=== PATIENT | female | born 2000 | race American Indian/Alaskan Native ===

== ENCOUNTER 2020-04-27 20:33 | Emergency (ER) | payer MEDICAID, OTHER ==
--- NOTE | 2020-04-27 21:11 | Event Note ---
ED Screening Note Date of service: 04/27/20 Time: 21:10 ED Screening Note: Is a pleasant G1, P0 20-year-old female presents the emergency department approximately 5 weeks with a chief complaint vaginal bleeding that started today. Patient states this is spotting. She has not yet seen her ACCESS DIRECTOR. She is not an ultrasound at this . She reports some mild cramping the lower abdomen. This initial assessment/diagnostic orders/clinical plan/treatment(s) is/are subject to change based on patients health status, clinical progression and re- assessment by fellow clinical providers in the ED. Further treatment and workup at subsequent clinical providers discretion. Patient/guardian urged not to elope from the ED as their condition may be serious if not clinically assessed and managed. Initial orders include: CBC, CMP, type and screen, urinalysis, transvaginal ultrasound
[2020-04-27 21:44] LABS: Basophils % (Auto) 0.6 % (0.0-1.8); Eosinophils % (Auto) 0.6 % (0.0-4.3); Hematocrit 31.4 % (30.3-42.9); Hemoglobin 11.2 gm/dl (10.1-14.3); Lymphocytes # (Auto) 1.7 K/mm3 (1.2-5.4); Lymphocytes % (Auto) 21.3 % (13.4-35.0); Mean Corpuscular HGB Conc 36 % (30-34); Mean Corpuscular Volume 80 fl (79-97); Monocytes # (Auto) 0.8 K/mm3 (0.0-0.8); Monocytes % (Auto) 9.7 % (0.0-7.3); Platelet Count 275 K/mm3 (140-440); Red Blood Count 3.94 M/mm3 (3.65-5.03); Red Cell Distribution Width 16.3 % (13.2-15.2)
[2020-04-27 22:05] LABS: Blood Urea Nitrogen 6 mg/dL (7-17); Calcium 9.6 mg/dL (8.4-10.2); Hemolysis Index 1
[2020-04-27 22:08] LABS: BUN/Creatinine Ratio 12
[2020-04-27] MEDS ORDERED: ACETAMINOPHEN 325 MG TAB PO ONE (23:26)
--- NOTE | 2020-04-27 23:29 | Ultrasound Report ---
US OB <= 14 weeks fetus INDICATION / CLINICAL INFORMATION: vaginal bleeding, approx 5 wks. COMPARISON: None available. FINDINGS: Uterus measures approximately 10 x 5 x 6 cm. Intrauterine gestational sac is noted with yolk sac and pole. [place]-rump length is 8.0 mm, 6 weeks 5 days. heart rate is 123. No subchorionic hem orrhage is seen. Ovaries are within normal limits. No adnexal lesions. No free fluid. IMPRESSION: 1. Single viable intrauterine with sonographic gestational age of 6 weeks, 5 days by crown- rump length. No abnormalities are identified. Signer Name: Srikanth Marr MD Signed: 04/27/2020 11:24 PM Workstation Name: [id number]
[2020-04-28 00:01] LABS: Bilirubin,Urine NEG (Negative); Blood,Urine NEG (Negative); Color,Urine Straw (Yellow); Mucus,Urine FEW /HPF; Protein,Urine <15 mg/dL mg/dL (Negative); Urobilinogen,Urine < 2.0 mg/dL (<2.0); WBC,Urine < 1.0 /HPF (0.0-6.0)
[2020-04-28 00:04] VITALS: BP 118/83
--- NOTE | 2020-04-28 00:06 | Emergency Department Report ---
ED HPI - General Chief complaint: Vaginal Bleeding Stated complaint: 5WKS /BLEEDING Time Seen by Provider: 04/27/20 23:19 Source: patient Mode of arrival: Ambulatory Limitations: No Limitations - History of Present Illness Initial comments: Patient is a 20-year-old female presents emergency room with lower abdominal cramping that began around 5 PM tonight. She states that she has associated vaginal bleeding. She states that she has changed her pad approximately 3 times. She denies any passing clots or significantly heavy bleeding. She states that her last menstrual cycle was March 18. She states that she has not yet seen her INDUSTRIAL INSULATOR but has an appointment with Dr. Shaw. She states that she typically has nausea in the morning and has one episode of vomiting but resolves. She has no nausea vomiting currently. She is able to tolerate p.o. intake. She denies any fever, diarrhea, dysuria, vaginal discharge or irr itation. No past medical history. No allergies to medications. She states this is her first . - Related Data Allergies Allergy/AdvReac Type Severity Reaction Status Date / Time No Known Allergies Allergy Unverified 08/27/15 17:13 ED Review of Systems ROS: Stated complaint: 5WKS /BLEEDING Other details as noted in HPI Comment: All other systems reviewed and negative ED Past Medical Hx - Past Medical History Hx Asthma: Yes Additional medical history: ANXIETY/ ECZEMA - Social History Smoking Status: Never Smoker Substance Use Type: None ED Physical Exam - General Limitations: No Limitations General appearance: alert, in no apparent distress - Head Head exam: Present: atraumatic, normocephalic - Eye Eye exam: Present: normal appearance - ENT ENT exam: Present: mucous membranes moist - Respiratory Respiratory exam: Present: normal lung sounds bilaterally. Absent: respiratory distress, wheezes, rales, rhonchi, stridor, chest wall tenderness, accessory mu scle use, decreased breath sounds, prolonged expiratory - Cardiovascular Cardiovascular Exam: Present: regular rate, normal rhythm, normal heart sounds. Absent: systolic murmur, diastolic murmur, rubs, gallop - GI/Abdominal GI/Abdominal exam: Present: soft, normal bowel sounds. Absent: distended, tenderness, guarding, rebound, rigid - Neurological Exam Neurological exam: Present: alert, oriented X3 - Psychiatric Psychiatric exam: Present: normal affect, normal mood - Skin Skin exam: Present: warm, dry, intact ED Course Vital Signs 04/27/20 21:15 Temperature 98.9 F Pulse Rate 84 Respiratory 16 Rate Blood Pressure 118/83 O2 Sat by Pulse 100 Oximetry ED Medical Decision Making - Lab Data Result diagrams: 04/27/20 21:18 04/27/20 21:18 Lab Results 04/27/20 04/27/20 04/27/20 Range/Units 21:18 21:18 21:18 WBC 8.1 (4.5-11.0) K/mm3 RBC 3.94 (3.65-5.03) M/mm3 Hgb 11.2 (10.1-14.3) gm/dl Hct 31.4 (30.3-42.9) % MCV 80 (79-97) fl MCH 29 (28-32) pg MCHC 36 H (30-34) % RDW 16.3 H (13.2-15.2) % Plt Count 275 (140-440) K/mm3 Lymph % (Auto) 21.3 (13.4-35.0) % [place] % (Auto) 9.7 H (0.0-7.3) % Eos % (Auto) 0.6 (0.0-4.3) % Baso % (Auto) 0.6 (0.0-1.8) % Lymph # (Auto) 1.7 (1.2-5.4) K/mm3 [place] # (Auto) 0.8 (0.0-0.8) K/mm3 Eos # (Auto) 0.0 (0.0-0.4) K/mm3 Baso # (Auto) 0.0 (0.0-0.1) K/mm3 Seg Neutrophils % 67.8 (40.0-70.0) % Seg Neutrophils # 5.5 (1.8-7.7) K/mm3 Sodium 133 L (137-145) mmol/L Potassium 4.1 (3.6-5.0) mmol/L Chloride 100.0 (98-107) mmol/L Carbon Dioxide 23 (22-30) mmol/L Anion Gap 14 mmol/L BUN 6 L (7-17) mg/dL Creatinine 0.5 L (0.6-1.2) mg/dL Estimated GFR > 60 ml/min BUN/Creatinine Ratio 12 % Glucose 79 (65-100) mg/dL Calcium 9.6 (8.4-10.2) mg/dL HCG, Quant 61600 H (0-4) mIU/mL Urine Color (Yellow) Urine Turbidity (Clear) Urine pH (5.0-7.0) Ur Specific [place] (1.003-1.030) Urine Protein (Negative) mg/dL Urine Glucose (UA) (Negative) mg/dL Urine Ketones (Negative) mg/dL Urine Blood (Negative) Urine Nitrite (Negative) Urine Bilirubin (Negative) Urine Urobilinogen (<2.0) mg/dL Ur Leukocyte Esterase (Negative) Urine WBC (Auto) (0.0-6.0) /HPF Urine RBC (Auto) (0.0-6.0) /HPF U Epithel Cells (Auto) (0-13.0) /HPF Urine Mucus /HPF Blood Type 04/27/20 04/27/20 Range/Units 21:18 Unknown WBC (4.5-11.0) K/mm3 RBC (3.65-5.03) M/mm3 Hgb (10.1-14.3) gm/dl Hct (30.3-42.9) % MCV (79-97) fl MCH (28-32) pg MCHC (30-34) % RDW (13.2-15.2) % Plt Count (140-440) K/mm3 Lymph % (Auto) (13.4-35.0) % [place] % (Auto) (0.0-7.3) % Eos % (Auto) (0.0-4.3) % Baso % (Auto) (0.0-1.8) % Lymph # (Auto) (1.2-5.4) K/mm3 [place] # (Auto) (0.0-0.8) K/mm3 Eos # (Auto) (0.0-0.4) K/mm3 Baso # (Auto) (0.0-0.1) K/mm3 Seg Neutrophils % (40.0-70.0) % Seg Neutrophils # (1.8-7.7) K/mm3 Sodium (137-145) mmol/L Potassium (3.6-5.0) mmol/L Chloride (98-107) mmol/L Carbon Dioxide (22-30) mmol/L Anion Gap mmol/L BUN (7-17) mg/dL Creatinine (0.6-1.2) mg/dL Estimated GFR ml/min BUN/Creatinine Ratio % Glucose (65-100) mg/dL Calcium (8.4-10.2) mg/dL HCG, Quant (0-4) mIU/mL Urine Color Straw (Yellow) Urine Turbidity Clear (Clear) Urine pH 7.0 (5.0-7.0) Ur Specific [place] 1.013 (1.003-1.030) Urine Protein <15 mg/dl (Negative) mg/dL Urine Glucose (UA) Neg (Negative) mg/dL Urine Ketones Tr (Negative) mg/dL Urine Blood Neg (Negative) Urine Nitrite Neg (Negative) Urine Bilirubin Neg (Negative) Urine Urobilinogen < 2.0 (<2.0) mg/dL Ur Leukocyte Esterase Neg (Negative) Urine WBC (Auto) < 1.0 (0.0-6.0) /HPF Urine RBC (Auto) 2.0 (0.0-6.0) /HPF U Epithel Cells (Auto) < 1.0 (0-13.0) /HPF Urine Mucus Few /HPF Blood Type B POSITIVE - Radiology Data Radiology results: report reviewed Ordering Physician: MARLENE BOTAENG Date of Service: 04/27/20 Procedure(s): US OB <= 14 weeks fetus Accession Number(s): [id number] cc: MARLENE BOATENG OB <= 14 weeks fetus INDICATION / CLINICAL INFORMATION: vaginal bleeding, approx 5 wks. COMPARISON: None available. FINDINGS: Uterus measures approximately 10 x 5 x 6 cm. Intrauterine gestational sac is noted with yolk sac and pole. [place]-rump length is 8.0 mm, 6 weeks 5 days. heart rate is 123. No subchorionic hemorrhage is seen. Ovaries are within normal limits. No adnexal lesions. No free fluid. IMPRESSION: 1. Single viable intrauterine with sonographic gestational age of 6 weeks, 5 days by crown-rump length. No abnormalities are identified. Signer Name: Srikanth Marr MD Signed: 04/27/2020 11:24 PM Workstation Name: [id number] Transcribed By: NANETTE Dictated By: Srikanth Marr MD Electronically Authenticated By: Srikanth Marr MD Signed Date/Time: 04/27/202323 DD/ 22 TD/TT: - Medical Decision Making Patient is a 20-year-old female presents emergency room with lower abdominal cramping that began around 5 PM tonight. She states that she has associated vaginal bleeding. She states that she has changed her pad approximately 3 times. She denies any passing clots or significantly heavy bleeding. She states that her last menstrual cycle was March 18. She states that she has not yet seen her INDUSTRIAL INSULATOR but has an appointment with Dr. Shaw. She states that she typically has nausea in the morning and has one episode of vomiting but resolves. She has no nausea vomiting currently. She is able to tolerate p.o. intake. She denies any fever, diarrhea, dysuria, vaginal discharge or irritation. No past medical history. No allergies to medications. She states this is her first . Vitals are normal. No abdominal tenderness on exam. Labs are stable. Patient is Rh[place] [id number]. UA is within normal limits. OB ultrasound:1. Single viable intrauterine with sonographic gestational age of 6 weeks, 5 days by crown-rump length. No abnormalities are identified. Discussed all results with patient and answered questions. Patient given her ultrasound report. Patient will need close INDUSTRIAL INSULATOR follow-up, discussed threatened miscarriage with patient, discussed the importance of repeat hCG quant in 2 days, discussed strict return precautions. Advised patient May take Tylenol as needed for discomfort. Increase your water intake. Please take a vitamin [id number]. Follow-up with your INDUSTRIAL INSULATOR. You need to have a repeat hCG quant in the next 2 days. Return to emergency room for any new or worsening symptoms. - Differential Diagnosis IUP, ectopic, subchorionic hemorrhage, hemorrhagic cyst, UTI, implantation Critical care attestation.: If time is entered above; I have spent that time in minutes in the direct care of this critically ill patient, excluding procedure time. ED Disposition Clinical Impression: Abdominal cramping, Vaginal bleeding Qualifiers: Weeks of gestation: less than 8 weeks Qualified Code(s): Z3A.01 - Less than 8 weeks gestation of Disposition: - TO HOME OR SELFCARE Is pt being admited?: No Does the pt Need Aspirin: No Condition: Stable Instructions: Threatened Miscarriage, [id number] Additional Instructions: May take Tylenol as needed for discomfort. Increase your water intake. Please take a vitamin [id number]. Follow-up with your INDUSTRIAL INSULATOR. You need to have a repeat hCG quant in the next 2 days. Return to emergency room for any new or worsening symptoms. Referrals: SUSAN SHAW MD [Staff Physician] - 2-3 Days Time of Disposition: 00:17 Print Language: DANISH
== END 2020-04-28 00:28 | disposition home or self-care (01) ==
LOC: ED 20:33
DX: O26.891 Other specified pregnancy related conditions, first trimester (principal); R10.2 Pelvic and perineal pain; O20.8 Other hemorrhage in early pregnancy; O99.511 Diseases of the respiratory system complicating pregnancy, first trimester; J45.909 Unspecified asthma, uncomplicated; O99.341 Other mental disorders complicating pregnancy, first trimester; Z3A.01 Less than 8 weeks gestation of pregnancy
CPT/HCPCS: 36415; 76801; 80048; 81001; 84702; 85025; 86900; 86901

== ENCOUNTER 2020-10-06 14:46 | Inpatient (IN) | payer OTHER, MEDICAID ==
[2020-10-06 16:37] LABS: Bilirubin,Urine NEG (Negative); Blood,Urine NEG (Negative); Color,Urine Straw (Yellow); Protein,Urine <15 mg/dL mg/dL (Negative); Urobilinogen,Urine < 2.0 mg/dL (<2.0)
[2020-10-06] MEDS ORDERED: LACTATED RINGERS 1,000 ML IV ONE (16:49)
[2020-10-06] MEDS ORDERED: TERBUTALINE 1 MG/1 ML INJ SUB-Q ONE (16:49)
[2020-10-06] MEDS ORDERED: ACETAMINOPHEN 325 MG TAB PO PRN (17:37)
[2020-10-06] MEDS ORDERED: DOCUSATE SODIUM 100 MG CAP PO PRN (17:37)
[2020-10-06] MEDS ORDERED: LACTATED RINGERS 1,000 ML IV SCH (17:45)
[2020-10-06] MEDS ORDERED: ACETAMINOPHEN 500 MG TAB PO PRN (17:47)
--- NOTE | 2020-10-06 17:49 | History and Physical Report ---
History of Present Illness Date of examination: 10/06/20 Chief complaint: Persistent contractions History of present illness: 20 yof who presented to the office for AURA c/o decrease FM. FHT's cat 1 however UC noted [id number]. She was sent to triage for evaluation where she has a +fFN however cervix closed. She had persisted UC's after IVF bolus and terbutaline. She's admitted now for steroid therapy and observation. Past History Past Medical History: no pertinent history Past Surgical History: no surgical history - Obstetrical History Expected Date of Delivery: 12/19/20 Actual Gestation: 29 Week(s) 3 Day(s) : 1 Medications and Allergies Allergies Allergy/AdvReac Type Severity Reaction Status Date / Time No Known Allergies Allergy Verified 10/06/20 15:12 Active Meds: Active Medications Acetaminophen (Acetaminophen 325 Mg Tab) 1,000 mg PO Q6H PRN PRN Reason: Pain MILD(1-3)/Fever >100.5/SORTO Betamethasone Acet/Betameth SodPhos (Betamet Acet/Betamet Na Ph 6 Mg/Ml Inj 5 Ml Mdv) 12 mg IM Q24HR DAVI Stop: 10/07/20 10:01 Docusate Sodium (Docusate Sodium 100 Mg Cap) 100 mg PO Q12H PRN PRN Reason: Constipation Lactated Ringer's (Lactated Ringers) 1,000 mls @ 125 mls/hr IV DIRECT DAVI Lactated Ringer's (Lactated Ringers) 1,000 mls @ 999 mls/hr IV BOLUS ONE Stop: 10/06/20 17:49 Lactated Ringer's (Lactated Ringers) 1,000 mls @ 125 mls/hr IV DIRECT DAVI Multivitamins/Iron/Calcium ( [id number]-[id number] Fumarate-Folic Acid Vit Tab) 1 each PO QDAY DAVI Review of Systems Genitourinary: contractions - Vital Signs Vital signs: Vital Signs Pulse Pulse Ox 88 98 10/06/20 15:09 10/06/20 15:09 Temp Pulse Resp BP Pulse Ox 98.5 F 95 H 20 116/74 100 10/06/20 15:15 10/06/20 17:39 10/06/20 15:15 10/06/20 15:36 10/06/20 17:39 - Physical Exam Abdomen: Positive: normal appearance, soft. Negative: tenderness Genitourinary (Female): Positive: normal external genitalia, normal perenium Uterus: Positive: enlarged. Negative: tender Anus/Rectum: Positive: normal perianal skin Extremities: Positive: normal - Obstetrical FHR: category 1 Uterine Contraction Monitor Mode: External Cervical Dilatation: 0 Cervical Effacement Percentage: 20 station: -3 Uterine Contraction Frequency (min): 3-4 Uterine Contraction Pattern: Irregular Results All other labs normal. Assessment and Plan - Patient Problems (1) 29 weeks gestation of Current Visit: Yes Status: Acute (2) contractions Current Visit: Yes Status: Acute Plan to address problem: Admit for IVF, steroids and observation Hold MgSO4 for now since no cervical dilation. Diagnosis and plan of care discussed. She voiced understanding and agrees with course of care (3) Carrier of group B Streptococcus Current Visit: Yes Status: Acute
[2020-10-06] MEDS: BETAMET ACET/BETAMET NA PH 6 MG/ML INJ 5 ML MDV IM SCH (21:43)
[2020-10-07] MEDS: LACTATED RINGERS 1,000 ML IV SCH (07:08)
--- NOTE | 2020-10-07 07:55 | Progress Note ---
Assessment and Plan pt resting w/o complaints, reports last feeling ctx around 0300. Second dose of steroids due tonight @ 2143. will continue to monitor for labor and reevaluate in AM. - Patient Problems (1) 29 weeks gestation of Current Visit: Yes Status: Acute (2) contractions Current Visit: Yes Status: Acute Subjective - Subjective Date of service: 10/07/20 Principal diagnosis: IUP @ 29+4; + FFN, ctx Patient reports: movement normal, no new complaints, no loss of fluid, no vaginal bleeding, no contractions Objective - Vital Signs Vital Signs: Vital Signs - 12hr 10/06/20 10/07/20 23:38 05:20 Temperature 98.5 F 98.1 F Pulse Rate 97 H 86 Blood Pressure 113/57 110/64 - Exam Breasts: normal Cardiovascular: Regular rate Lungs: Normal air movement Abdomen: Present: normal appearance, soft Vulva: both: normal Uterus: Present: normal, fundal height above umbilicus FHR: auscultation normal, category 1 Uterine Contraction Monitor Mode: External Uterine Contraction Pattern: Absent Uterine Tone Measurement Phase: Resting Extremities: normal Deep Tendon Reflex Grade: Normal +2 - Labs Labs: Laboratory Results - last 24 hr 10/06/20 10/06/20 10/06/20 16:00 19:00 Unknown Urine Color Straw Urine Turbidity Clear Urine pH 7.0 Ur Specific [place] 1.008 Urine Protein <15 mg/dl Urine Glucose (UA) Neg Urine Ketones Neg Urine Blood Neg Urine Nitrite Neg Ur Reducing Substances Not Reportable Urine Bilirubin Neg Urine Ictotest Not Reportable Urine Urobilinogen < 2.0 Ur Leukocyte Esterase Neg Urine WBC (Auto) 1.0 Urine RBC (Auto) 1.0 U Epithel Cells (Auto) 1.0 Fibronectin Positive Blood Type B POSITIVE Antibody Screen Negative
[2020-10-07] MEDS: PRENATAL VIT27-FE FUMARATE-FOLIC ACID VIT TAB PO SCH (10:38)
[2020-10-07] MEDS: BETAMET ACET/BETAMET NA PH 6 MG/ML INJ 5 ML MDV IM SCH (21:48)
[2020-10-08] MEDS: LACTATED RINGERS 1,000 ML IV SCH (06:08)
--- NOTE | 2020-10-08 08:13 | Progress Note ---
Assessment and Plan Continue monitoring for SSx of PTL. Will review case with Dr. Levin. - Patient Problems (1) 29 weeks gestation of Current Visit: Yes Status: Acute (2) contractions Current Visit: Yes Status: Acute Subjective - Subjective Date of service: 10/08/20 Principal diagnosis: IUP @ 29+5; + FFN, ctx Interval history: Pt admitted for contractions and +FFN; States, "I feel so much better". Reports +FM and denies all complaints. Patient reports: movement normal, no new complaints, no loss of fluid, no vaginal bleeding, no contractions Objective - Vital Signs Vital Signs: Vital Signs - 12hr 10/07/20 10/08/20 10/08/20 23:52 04:36 06:05 Temperature 98.1 F 98.3 F Pulse Rate 96 H 80 Respiratory 20 Rate Blood Pressure 112/60 94/54 10/08/20 06:08 Temperature Pulse Rate 92 H Respiratory Rate Blood Pressure 105/58 - Exam Cardiovascular: Regular rate Lungs: Normal air movement Abdomen: Present: normal appearance, soft Vulva: both: normal Uterus: Present: normal FHR: auscultation normal, category 1 Uterine Contraction Monitor Mode: External Uterine Contraction Pattern: Absent Uterine Tone Measurement Phase: Resting Extremities: normal - Labs Labs: Laboratory Results - last 24 hr 10/07/20 Unknown Coronavirus (PCR) Negative
[2020-10-08] MEDS: PRENATAL VIT27-FE FUMARATE-FOLIC ACID VIT TAB PO SCH (10:05)
--- NOTE | 2020-10-08 12:12 | Discharge Summary ---
Providers - Providers Date of Admission: 10/06/20 17:37 Date of discharge: 10/08/20 Attending physician: EUGENE HALL Primary care physician: SUSAN SHAW Hospitalization Reason for admission: contractions, +FFN Condition: Good Disposition: DC-01 TO HOME OR SELFCARE Final Discharge Diagnosis (Prints w/discharge instructions): contractions Core Measure Documentation - Palliative Care Palliative Care/ Comfort Measures: Not Applicable - Core Measures Any of the following diagnoses?: none Exam - Physical Exam Narrative exam: Pt in good spirits, denies all complaints and reports desire for discharge home; SVE closed/thick; Pt ok to D/C home per Dr. Sahw consultation - Constitutional Vitals: Temp Pulse Resp BP Pulse Ox 98.6 F 92 H 20 105/58 100 10/08/20 07:15 10/08/20 06:08 10/07/20 23:52 10/08/20 06:08 10/06/20 17:39 General appearance: Present: no acute distress - EENT ENT: hearing intact - Respiratory Respiratory effort: normal - Extremities Extremities: No edema, normal temperature, normal color - Abdominal General gastrointestinal: Present: soft, non-tender Female genitourinary: Present: normal - Integumentary Integumentary: Present: warm, dry - Musculoskeletal Musculoskeletal: strength equal bilaterally - Psychiatric Psychiatric: appropriate mood/affect, intact judgment & insight, memory intact, cooperative Plan Activity: advance as tolerated Diet: regular Follow up with: SUSAN SHAW MD [Primary Care Provider] - 7 Days
[2020-10-08 14:54] VITALS: BP 117/60
== END 2020-10-08 16:10 | disposition home or self-care (01) | DRG 833 ==
LOC: TRG 14:46 → APU 14:48 → LD 17:37 → TRG 19:00
PROVIDERS: ADMIT Obstetrics & Gynecology; ATTEND Obstetrics & Gynecology
DX: O60.03 Preterm labor without delivery, third trimester (principal); Z3A.29 29 weeks gestation of pregnancy; O99.820 Streptococcus B carrier state complicating pregnancy; Z20.822 Contact with and (suspected) exposure to COVID-19
CPT/HCPCS: 36415; 81001; 82731; 86850; 86900; 86901; G0378; J0702; J3105; J7120; U0003

== ENCOUNTER 2020-12-03 01:35 | Outpatient (CLI) | payer OTHER, MEDICAID ==
[2020-12-03 03:00] VITALS: BP 110/59
== END 2020-12-03 03:13 | disposition home or self-care (01) ==
LOC: TRG 01:35 → APU 01:45 → TRG 03:13
PROVIDERS: ATTEND Obstetrics & Gynecology
DX: Z34.93 Encounter for supervision of normal pregnancy, unspecified, third trimester (principal); Z3A.37 37 weeks gestation of pregnancy
CPT/HCPCS: 59025

== ENCOUNTER 2020-12-08 06:06 | Inpatient (IN) | payer OTHER, MEDICAID ==
[2020-12-08] MEDS ORDERED: CARBOPROST TROMETHAMINE 250 MCG/1 ML INJ IM PRN (06:35)
[2020-12-08] MEDS ORDERED: LOPERAMIDE 2 MG CAP PO PRN (06:35)
[2020-12-08] MEDS ORDERED: METHYLERGONOVINE MALEATE 0.2 MG/ML VIAL IM PRN (06:35)
[2020-12-08] MEDS ORDERED: fentaNYL 100 MCG/2 ML INJ IV PRN (06:35)
[2020-12-08] MEDS ORDERED: TERBUTALINE 1 MG/1 ML INJ SUB-Q PRN (06:35)
[2020-12-08] MEDS ORDERED: ONDANSETRON 4 MG/2 ML INJ IV PRN ×3 (06:35→18:13)
[2020-12-08] MEDS ORDERED: miSOPROStol 200 MCG TAB PR PRN (06:35)
[2020-12-08] MEDS ORDERED: OXYTOCIN 10 UNIT/1 ML INJ IM PRN (06:35)
[2020-12-08] MEDS ORDERED: ePHEDrine SULFATE 50 MG/1 ML INJ IV PRN ×2 (06:35→10:00)
[2020-12-08] MEDS ORDERED: AMPICILLIN/NS 2 GM/100 ML 2 GM/100 ML BAG IV ONE (06:35)
[2020-12-08] MEDS ORDERED: LIDOCAINE (2%) 20 MG/1 ML VIAL 20 ML MDV INFILTRATI ONE (06:35)
[2020-12-08] MEDS ORDERED: MINERAL OIL 30 ML ORAL LIQD PO PRN (06:35)
--- NOTE | 2020-12-08 06:48 | History and Physical Report ---
History of Present Illness Date of examination: 12/08/20 Date of admission: 12/08/2020 Chief complaint: contractions since 7pm History of present illness: EDC 12/19/2020 by LMP Denies Social Hx, Medical/Surgical Hx, PIG CASTER Hx, and Genetic and environmental risks Family Hx of HTN and cancer No Known Allergies Past History Past Medical History: no pertinent history Past Surgical History: no surgical history Family/Genetic History: hypertension, cancer Social history: no significant social history - Obstetrical History Expected Date of Delivery: 12/19/20 Actual Gestation: 38 Week(s) 3 Day(s) : 1 Para: 0 Hx # Term Pregnancies: 0 Number of Pregnancies: 0 Spontaneous Abortions: 0 Induced : 0 Number of Living Children: 0 Medications and Allergies Allergies Allergy/AdvReac Type Severity Reaction Status Date / Time No Known Allergies Allergy Verified 10/06/20 15:12 Home Medications Medication Instructions Recorded Confirmed Last Taken Type No Known Home Medications [No 10/08/20 10/08/20 Unknown History Reported Home Medications] Active Meds: Active Medications Carboprost Tromethamine (Carboprost Tromethamine 250 Mcg/1 Ml Inj) 250 mcg IM ONCE PRN PRN Reason: Uterine Bleeding Ephedrine Sulfate (Ephedrine Sulfate 50 Mg/1 Ml Inj) 10 mg IV Q2M PRN PRN Reason: Hypotension Fentanyl (Fentanyl 100 Mcg/2 Ml Inj) 100 mcg IV Q2H PRN PRN Reason: Pain,Severe (7-10) LABOR PAIN Lactated Ringer's (Lactated Ringers) 1,000 mls @ 125 mls/hr IV DIRECT DAVI Oxytocin/Sodium Chloride (Pitocin/Ns 30 Unit/500ml) 30 units in 500 mls @ 40 mls/hr IV TITR DAVI; Protocol Ampicillin Sodium (Ampicillin/Ns 2 Gm/100 Ml) 2 gm in 100 mls @ 100 mls/hr IV ONCE ONE; Protocol Stop: 12/08/20 07:34 Lidocaine (Lidocaine (2%) 20 Mg/1 Ml Vial 20 Ml Mdv) 20 ml INFILTRATI ONCE ONE Stop: 12/08/20 06:36 Loperamide HCl (Loperamide 2 Mg Cap) 2 mg PO ONCE PRN PRN Reason: give with Hemabate Methylergonovine Maleate (Methylergonovine Maleate 0.2 Mg/Ml Vial) 0.2 mg IM ONCE PRN PRN Reason: Uterine Bleeding Mineral Oil (Mineral Oil 30 Ml Oral Liqd) 30 ml PO QHS PRN PRN Reason: Constipation Misoprostol (Misoprostol 200 Mcg Tab) [address] ONCE PRN PRN Reason: Uterine Bleeding Ondansetron HCl (Ondansetron 4 Mg/2 Ml Inj) 4 mg IV Q8H PRN PRN Reason: Nausea And Vomiting Oxytocin (Oxytocin 10 Unit/1 Ml Inj) 10 unit IM ONCE PRN PRN Reason: Uterine Bleeding Terbutaline Sulfate (Terbutaline 1 Mg/1 Ml Inj) 0.25 mg SUB-Q ONCE PRN PRN Reason: Hyperstimulation/Hypertonicity Review of Systems All systems: negative Genitourinary: contractions - Vital Signs Vital signs: Vital Signs Pulse BP 82 137/73 12/08/20 06:31 12/08/20 06:31 Temp Pulse Resp BP Pulse Ox 82 137/73 12/08/20 06:31 12/08/20 06:31 - Physical Exam Breasts: Positive: normal Cardiovascular: Regular rate Lungs: Positive: Normal air movement Abdomen: Positive: normal appearance, soft Genitourinary (Female): Positive: normal external genitalia, normal perenium Vulva: both: normal Vagina: Positive: normal moisture Uterus: Positive: normal size, normal contour Anus/Rectum: Positive: normal perianal skin Extremities: Positive: normal - Obstetrical FHR comments: EFM and toco placed by RN Uterine Contraction Monitor Mode: Palpation Cervical Dilatation: 5 Cervical Effacement Percentage: 80 station: -1 Uterine Contraction Pattern: Regular Uterine Contraction Intensity: Moderate Results All other labs normal. In office labs below- On 09/04/20: H/H 9.4/30.1% On 06/02/20: GBS POSITIVE in urine AFP negative HBsAg negative RPR Nonreactive Rubella Immune B positive antibody screen negative H/H 11.2/34.6% HIV Nonreactive HCV negative On 05/02/20: GC/CT/Trich Negative Assessment and Plan term pt presents to triage with c/o contractions and loss of mucus plug around 7pm tonight. +FM, Denies pertinent history; records reviewed. Plan to admit for labor, start IV, draw labs, administer Ampicillin 2gm then 1 gm IV Q4H until delivery, and pt may have epidural when desired - Patient Problems (1) Active labor Current Visit: Yes Status: Acute (2) 38 weeks gestation of Current Visit: Yes Status: Acute (3) Anemia Current Visit: Yes Status: Acute (4) Carrier of group B Streptococcus Current Visit: No Status: Acute
[2020-12-08] MEDS ORDERED: OXYTOCIN DRIP 30 UNITS/500 ML BAG IV SCH (07:00)
[2020-12-08] MEDS: LACTATED RINGERS 1,000 ML IV SCH ×2 (08:02→11:23)
[2020-12-08 08:17] LABS: Hematocrit 26.3 % (30.3-42.9); Hemoglobin 8.7 gm/dl (10.1-14.3); Mean Corpuscular HGB Conc 33 % (30-34); Mean Corpuscular Volume 76 fl (79-97); Platelet Count 252 K/mm3 (140-440); Red Blood Count 3.48 M/mm3 (3.65-5.03); Red Cell Distribution Width 16.1 % (13.2-15.2)
--- NOTE | 2020-12-08 09:59 | Anesthesia Consultation ---
Anesthesia Consult and Med Hx Date of service: 12/08/20 - Airway Anesthetic Teeth Evaluation: Good ROM Head & Neck: Adequate Mental/Hyoid Distance: Adequate Mallampati Class: Class I Intubation Access Assessment: Good - Pulmonary Exam CTA: Yes - Cardiac Exam Cardiac Exam: RRR - Pre-Operative Health Status ASA Pre-Surgery Classification: ASA2 Proposed Anesthetic Plan: Epidural - Pulmonary Hx Smoking: No Hx Asthma: Yes (LAST ASTHMA ATTACK 2 MONTHS AGO NO INHALER) COPD: No Hx Pneumonia: No Hx Sleep Apnea: No - Cardiovascular System Hx Hypertension: No Hx Heart Attack/AMI: No Hx Angina: No - Central Nervous System Hx Seizures: No Hx Psychiatric Problems: No - Gastrointestinal Hx Gastroesophageal Reflux Disease: No - Endocrine Hx Renal Disease: No Hx End Stage Renal Disease: No Hx Liver Disease: No Hx Insulin Dependent Diabetes: No Hx Non-Insulin Dependent Diabetes: No Hx Hypothyroidism: No Hx Hyperthyroidism: No - Hematic Hx Anemia: No Hx Sickle Cell Disease: No - Other Systems Hx Alcohol Use: No
[2020-12-08] MEDS ORDERED: fentaNYL-BUPIV 2 MCG/ML-0.125% 200 MCG/100 ML BAG EPIDURAL SCH (10:00)
[2020-12-08] MEDS ORDERED: diphenhydrAMINE 50 MG/ML VIAL IV PRN (10:00)
[2020-12-08] MEDS ORDERED: NalbUPHINE 10 MG/1 ML INJ IV PRN (10:00)
[2020-12-08] MEDS ORDERED: LACTATED RINGERS 250 ML IV SOLN IV ONE (10:00)
[2020-12-08] MEDS ORDERED: NALOXONE 2 MG/2 ML INJ IV PRN (10:00)
--- NOTE | 2020-12-08 10:00 | Progress Note ---
Labor Epidural - Labor Epidural Start Time: 09:41 Stop Time: 09:55 Performed by:: DYLON BUNCH Procedure: Patient is requesting epidural for labor and pain. H&P, labs were reviewed. Patient IDed, H&P reviewed, all questions and concerns were answered, and consent was signed. Timeout was performed at bedside. Patient in sitting position. Sterile prep and drape was performed. 3ml of 1% lidocaine skin wheal at L[3]- L [4]. 18-gauge eInstruction by [employer] epidural needle was advanced to loss of resistance with air technique 5cm. Negative CSF negative blood. Epidural catheter advanced to [11] centimeters. [negative] Aspiration [negative] test dose. Sterile dressing applied. Patient tolerated procedure.
[2020-12-08] MEDS ORDERED: AMPICILLIN/NS 1 GM/50 ML 1 GM/50 ML BAG IV SCH (10:30)
--- NOTE | 2020-12-08 13:02 | Procedure Note ---
OB Delivery Note - Delivery Date of Delivery: 12/08/20 ( male) [employer] She[employer] Farmer: KEYONA CHRIS Estimated blood loss: other (400) - Vaginal Delivery presentation: vertex Delivery position: OA Intrapartum events: none Delivery induction: none Delivery monitor: external FHT, external uterine Route of delivery: Delivery placenta: spontaneous Episiotomy: none Delivery laceration: none Anesthesia: epidural Delivery comments: male born over intact perineum, placed skin to skin on mother's abdomen. 3 vessel cord clamped and cut after cessation or pulsation. placenta del intact and complete. no lacerations to repair. small to moderate bleeding noted, IV not functioning for IM pit administered. Mother and baby LDR stable.All counts correct. - A at 1 minute: 8 at 5 minutes: 9 Infant Gender: Male
--- NOTE | 2020-12-08 17:05 | Event Note ---
Date: 12/08/20 pt c/o dizziness, maternal tachycardia noted. pre delivery H&H 8.7/26.3. Stat H&H ordered. Currently Lochia scant, fundus firm. reviewed possible need for blood transfusion. Will continue to monitor closely.
[2020-12-08 17:46] LABS: Hematocrit 21.1 % (30.3-42.9); Hemoglobin 6.8 gm/dl (10.1-14.3)
[2020-12-08] MEDS ORDERED: PROMETHAZINE 25 MG RECT SUPP PR PRN (18:13)
[2020-12-08] MEDS ORDERED: diphenhydrAMINE 25 MG CAP PO PRN (18:13)
[2020-12-08] MEDS ORDERED: PROMETHAZINE 25 MG TAB PO PRN (18:13)
[2020-12-08] MEDS ORDERED: LANOLIN/ZINC/DIMETHICONE (LANSINOH) 7 GM TP PRN ×2 (18:13)
[2020-12-08] MEDS ORDERED: MAGNESIUM HYDROXIDE (MOM) ORAL LIQD UDC PO PRN (18:13)
[2020-12-08] MEDS ORDERED: WITCH HAZEL/ GLYCERIN PAD TP PRN (18:13)
[2020-12-08] MEDS ORDERED: BENZOCAINE/MENTHOL 20/0.5% TOP SPRAY 56 GM TP PRN (18:13)
[2020-12-08] MEDS ORDERED: SODIUM CHLORIDE 0.9% 500 ML 500 ML IV ONE (19:30)
[2020-12-08] MEDS: ACETAMINOPHEN 325 MG TAB PO PRN (20:01)
[2020-12-08] MEDS: IBUPROFEN 600 MG TAB PO SCH (21:25)
[2020-12-08] MEDS ORDERED: FERROUS SULFATE 325 MG TAB PO SCH (22:00)
--- NOTE | 2020-12-08 23:37 | Event Note ---
Date: 12/08/20 <6hr post delivery H&H dropped to 6.8/21.1 pt initially agreed to getting blood transfusion. Shortly before administration of blood, patient states she feels better and would like to wait for transfusion. Will continue to monitor closely and revisit need for blood in the morning. FE order changed to TID.
[2020-12-09] MEDS: FERROUS SULFATE 325 MG TAB PO SCH ×4 (00:09→22:00)
[2020-12-09 00:58] LABS: Hematocrit 20.7 % (30.3-42.9); Hemoglobin 6.7 gm/dl (10.1-14.3)
[2020-12-09] MEDS: IBUPROFEN 600 MG TAB PO SCH ×4 (03:37→19:46)
--- NOTE | 2020-12-09 06:26 | Progress Note ---
Assessment and Plan - Patient Problems (1) Anemia Onset Date: ~12/09/20 Current Visit: Yes Status: Acute Qualifiers: Anemia type: iron deficiency Iron deficiency anemia type: unspecified iron deficiency Qualified Code(s): D50.9 - Iron deficiency anemia, unspecified Plan to address problem: Explained my concerns @ her low H&H and being symptomatic Pt agrees to receive 2 units PRC as ordered. (2) (normal spontaneous vaginal delivery) Onset Date: ~12/08/20 Current Visit: Yes Status: Acute Plan to address problem: Pt in good spirits. No c/o this AM. VSS FF below umb Lochia small Perineum intact H&H 11/22 pt agrees to transfusion. P: Continue pathway today. Complete transfusion. D/C in AM Subjective - Subjective Date of service: 12/09/20 (Will transfuse 2 units) Principal diagnosis: Day #1 s/p ; post delivery anemia Pt agrees to PRC Patient reports: appetite normal, voiding normally, dizzy ambulation (pt asks for assistance when OOB States it is much better this AM), pain well controlled [place]: doing well Objective - Vital Signs Latest vital signs: Vital Signs Temp Pulse Resp BP BP Pulse Ox 12/09/20 03:37 18 12/09/20 00:32 68.0 F L 105 H 18 113/69 100 12/08/20 22:25 18 12/08/20 21:25 18 12/08/20 21:08 97.0 F L 105 H 18 112/63 99 12/08/20 21:01 18 12/08/20 20:01 18 12/08/20 18:00 97.3 F L 98 H 20 116/68 98 12/08/20 15:00 98.1 F 18 12/08/20 14:26 113 H 94/62 12/08/20 14:25 123 H 100 12/08/20 14:20 102 H 100 12/08/20 14:15 102 H 100 12/08/20 14:11 96 H 93/57 12/08/20 14:10 103 H 100 12/08/20 14:05 96 H 100 12/08/20 14:00 99 H 100 12/08/20 13:56 99 H 95/59 12/08/20 13:55 93 H 100 12/08/20 13:50 78 100 12/08/20 13:45 90 100 12/08/20 13:41 96 H 105/61 12/08/20 13:40 88 100 12/08/20 13:38 95 H 89 12/08/20 13:35 99 H 100 12/08/20 13:32 58 L 87 12/08/20 13:30 110 H 92 12/08/20 13:26 89 103/59 12/08/20 13:25 107 H 94 12/08/20 13:24 105 H 89 12/08/20 13:20 101 H 100 12/08/20 13:15 115 H 100 12/08/20 13:10 102 H 100 12/08/20 13:05 92 H 100 12/08/20 13:00 92 H 100 12/08/20 12:55 89 100 12/08/20 12:53 78 95/51 12/08/20 12:50 145 H 100 12/08/20 12:45 97.4 F L 104 H 16 100 12/08/20 12:40 98 H 100 12/08/20 12:35 118 H 91 12/08/20 12:30 103 H 81 L 12/08/20 12:25 90 100/56 100 12/08/20 12:20 66 100 12/08/20 12:15 61 100 12/08/20 12:10 109 H 100 12/08/20 12:05 83 99 12/08/20 12:00 83 99 12/08/20 11:55 87 98 12/08/20 11:54 87 101/55 12/08/20 11:50 75 99 12/08/20 11:45 81 100 12/08/20 11:40 76 99 12/08/20 11:35 84 99 12/08/20 11:30 86 98 12/08/20 11:25 93 H 98 12/08/20 11:23 99 H 100/62 12/08/20 11:21 70 99/57 12/08/20 11:20 94 H 99 12/08/20 11:19 93 H 96/55 12/08/20 11:17 93 H 100/60 12/08/20 11:15 94 H 100/55 99 12/08/20 11:13 88 98/56 12/08/20 11:11 82 99/57 12/08/20 11:10 97 H 97 12/08/20 11:09 96 H 102/62 12/08/20 11:07 94 H 101/60 12/08/20 11:05 80 101/59 99 12/08/20 11:03 96 H 101/58 12/08/20 11:01 87 99/56 12/08/20 11:00 97.8 F 82 98 12/08/20 10:59 76 101/55 12/08/20 10:57 94 H 98/55 12/08/20 10:55 88 96/53 99 12/08/20 10:53 97 H 101/59 12/08/20 10:51 77 102/57 12/08/20 10:50 94 H 99 12/08/20 10:49 91 H 100/57 12/08/20 10:47 100 H 101/55 12/08/20 10:45 77 97/52 100 12/08/20 10:43 81 102/60 12/08/20 10:41 100 H 93/53 12/08/20 10:40 74 100 12/08/20 10:39 101 H 95/53 12/08/20 10:37 105 H 96/54 12/08/20 10:35 80 95/55 100 12/08/20 10:33 86 102/64 12/08/20 10:31 99 H 100/57 12/08/20 10:30 91 H 100 12/08/20 10:29 99 H 102/61 12/08/20 10:27 81 102/57 12/08/20 10:25 85 102/59 99 12/08/20 10:23 101 H 99/56 12/08/20 10:21 93 H 100/56 12/08/20 10:20 74 99 12/08/20 10:19 98 H 100/59 12/08/20 10:17 94 H 100/67 12/08/20 10:15 75 98/55 99 12/08/20 10:13 88 105/59 12/08/20 10:11 91 H 106/57 12/08/20 10:10 101 H 99 12/08/20 10:09 86 103/55 12/08/20 10:07 88 107/63 12/08/20 10:05 98 H 108/68 100 12/08/20 10:03 89 108/68 12/08/20 10:01 106 H 112/68 12/08/20 10:00 81 100 12/08/20 09:59 90 113/70 12/08/20 09:57 92 H 111/69 12/08/20 09:55 90 118/71 100 12/08/20 09:53 88 120/79 12/08/20 09:51 88 119/76 12/08/20 09:50 106 H 100 12/08/20 09:49 104 H 117/73 12/08/20 09:47 108 H 125/72 12/08/20 09:45 121 H 119/75 100 12/08/20 09:40 111 H 100 12/08/20 09:36 96 H 86 12/08/20 09:34 89 100 12/08/20 09:32 86 122/78 12/08/20 09:29 86 100 12/08/20 09:24 99 H 100 12/08/20 09:19 100 H 94 12/08/20 09:14 85 99 12/08/20 09:09 89 100 12/08/20 09:04 95 H 100 12/08/20 09:03 16 12/08/20 09:00 100 H 111/66 12/08/20 08:59 86 99 12/08/20 08:56 70 93 12/08/20 08:54 105 H 100 12/08/20 08:49 99 H 99 12/08/20 08:44 80 98 12/08/20 08:39 75 100 12/08/20 08:34 105 H 99 12/08/20 08:31 96 H 113/71 12/08/20 08:30 98.1 F 18 12/08/20 08:29 72 99 12/08/20 08:24 98 H 99 12/08/20 08:19 119 H 100 12/08/20 08:14 94 H 100 12/08/20 08:09 109 H 100 12/08/20 08:04 90 100 12/08/20 08:03 18 12/08/20 08:00 103 H 116/76 99 12/08/20 06:31 82 137/73 Intake and Output 12/08/20 12/08/20 12/09/20 14:59 22:59 06:59 Intake Total 418.75 240 Output Total 100 1750 300 Balance 318.75 -1510 -300 Intake: IV 418.75 Lactated Ringers 1,000 ml 418.75 @ 125 mls/hr IV DIRECT DAVI Rx#:[id number] Oral 240 Output: Urine 100 1750 300 Uretheral (Rios) 100 Void 1750 300 Other: Total, Intake Amount 240 Total, Output Amount 500 300 # Voids Void 1 Estimated Blood Loss 450 - Exam Breasts: Present: normal Cardiovascular: Present: Regular rate Lungs: Present: Normal air movement Abdomen: Present: normal appearance, soft, normal bowel sounds Uterus: Present: normal, fundal height below umbilicus Extremities: Present: normal Deep Tendon Reflex Grade: Normal +2 Incision: Present: normal, dry, intact - Labs Labs: Abnormal lab results 12/08/20 12/08/20 12/08/20 Range/Units 07:50 07:50 16:53 WBC 14.8 H (4.5-11.0) K/mm3 RBC 3.48 L (3.65-5.03) M/mm3 Hgb 8.7 L 6.8 L (10.1-14.3) gm/dl Hct 26.3 L 21.1 L (30.3-42.9) % MCV 76 L (79-97) fl MCH 25 L (28-32) pg RDW 16.1 H (13.2-15.2) % Crossmatch See Detail 12/09/20 Range/Units 00:39 WBC (4.5-11.0) K/mm3 RBC (3.65-5.03) M/mm3 Hgb 6.7 L (10.1-14.3) gm/dl Hct 20.7 L (30.3-42.9) % MCV (79-97) fl MCH (28-32) pg RDW (13.2-15.2) % Crossmatch
[2020-12-09] MEDS ORDERED: SODIUM CHLORIDE 0.9% 500 ML 500 ML IV ONE (06:30)
[2020-12-09] MEDS: ACETAMINOPHEN 325 MG TAB PO PRN ×2 (07:31→18:28)
--- NOTE | 2020-12-09 08:48 | Post Anesthesia Evaluation ---
- Post Anesthesia Evaluation Patient Participated: Yes Airway Patent: Yes Stable Respiratory Function: Yes Nausea/Vomiting: No Temp > 96.8F: Yes Pain Manageable: Yes Adequeate Hydration: Yes Anesthesia Complications: No Block Receding Appropriately: Yes Patient on Ventilator: No
[2020-12-09] MEDS ORDERED: SODIUM CHLORIDE 0.9% 500 ML 500 ML ONE (09:10)
[2020-12-09] MEDS ORDERED: TETANUS,DIPH,PERTUSS(ACELL) VACCINE 0.5 ML SYRINGE IM ONE (13:06)
[2020-12-09] MEDS: PRENATAL VIT27-FE FUMARATE-FOLIC ACID VIT TAB PO SCH (18:28)
[2020-12-10] MEDS: IBUPROFEN 600 MG TAB PO SCH ×3 (05:35→13:59)
[2020-12-10] MEDS: FERROUS SULFATE 325 MG TAB PO SCH ×2 (07:41→13:59)
--- NOTE | 2020-12-10 07:56 | Discharge Summary ---
Providers - Providers Date of Admission: 12/08/20 06:35 Date of discharge: 12/10/20 (desires d/c home) Attending physician: EUGENE HALL 12/08/20 18:13 Consult to Photographic Machine Operator [CONS] Routine Reason For Exam: assistance with , SNS Primary care physician: EUGENE HALL Hospitalization Reason for admission: Labor Condition: Good Pertinent studies: post transfusion H&H 9.0/28.0 Procedures: Hospital course: and course complicated by anemia Disposition: DC-01 TO HOME OR SELFCARE Final Discharge Diagnosis (Prints w/discharge instructions): Time spent for discharge: 25 - Discharge Diagnoses (1) Anemia Status: Acute Qualifiers: Anemia type: iron deficiency Iron deficiency anemia type: unspecified iron deficiency Qualified Code(s): D50.9 - Iron deficiency anemia, unspecified (2) (normal spontaneous vaginal delivery) Status: Acute Core Measure Documentation - Palliative Care Palliative Care/ Comfort Measures: Not Applicable - Core Measures Any of the following diagnoses?: none Exam - Constitutional Vitals: Temp Pulse Resp BP Pulse Ox 98.5 F 92 H 18 111/63 100 12/10/20 01:00 12/10/20 01:00 12/10/20 06:35 12/10/20 01:00 12/10/20 01:00 General appearance: Present: no acute distress, well-nourished - EENT Eyes: Present: PERRL ENT: hearing intact, clear oral mucosa - Neck Neck: Present: supple, normal ROM - Respiratory Respiratory effort: normal Respiratory: bilateral: CTA - Cardiovascular Rhythm: regular Heart Sounds: Absent: rub, click - Extremities Extremities: No edema Peripheral Pulses: within normal limits - Abdominal General gastrointestinal: Present: soft, non-tender, non-distended, normal bowel sounds Female genitourinary: Present: normal - Integumentary Integumentary: Present: clear, warm, dry - Musculoskeletal Musculoskeletal: gait normal, strength equal bilaterally - Psychiatric Psychiatric: appropriate mood/affect, intact judgment & insight - Neurologic Neurologic: CNII-XII intact, moves all extremities - Additional findings Additional findings: lochia scant, fundus firm, Plan Activity: no restrictions Diet: regular Wound: open to air, keep clean and dry Follow up with: EUGENE HALL MD [Primary Care Provider] - 7 Days (Congratulations!!! Please call [phone] to schedule your son's circumcision in 1 week and your visit in 4 weeks. Bring EMLA cream to your son's visit and wait for teaching. Call for any questions or concerns.) Prescriptions: Lidocain2.5%/Prilocai2.5% [Emla] 5 gm TP ONCE PRN #1 tube PRN Reason: Pain Ferrous Sulfate [Feosol 325 MG tab] 325 mg PO BID #60 tablet Ibuprofen [Motrin 800 MG tab] 800 mg PO Q8HR PRN #30 tablet PRN Reason: Pain
[2020-12-10] MEDS: PRENATAL VIT27-FE FUMARATE-FOLIC ACID VIT TAB PO SCH (10:10)
[2020-12-10 15:16] VITALS: BP 110/66
== END 2020-12-10 15:00 | disposition home or self-care (01) | DRG 807 ==
LOC: TRG 06:06 → APU 06:09 → TRG 07:13 → LD 08:04 → OB 17:56
PROVIDERS: ADMIT Obstetrics & Gynecology; ATTEND Obstetrics & Gynecology
PROC: 10E0XZZ Delivery of Products of Conception, External Approach (ICD-10-PCS; principal; 2020-12-08)
PROC: 3E0R3BZ Introduction of Anesthetic Agent into Spinal Canal, Percutaneous Approach (ICD-10-PCS; 2020-12-08)
PROC: 00HU33Z Insertion of Infusion Device into Spinal Canal, Percutaneous Approach (ICD-10-PCS; 2020-12-08)
PROC: 30233N1 Transfusion of Nonautologous Red Blood Cells into Peripheral Vein, Percutaneous Approach (ICD-10-PCS; 2020-12-09)
PROC: 3E0234Z Introduction of Serum, Toxoid and Vaccine into Muscle, Percutaneous Approach (ICD-10-PCS; 2020-12-09)
DX: O99.824 Streptococcus B carrier state complicating childbirth (principal); Z37.0 Single live birth; O99.892 Other specified diseases and conditions complicating childbirth; O99.02 Anemia complicating childbirth; D50.9 Iron deficiency anemia, unspecified; R00.0 Tachycardia, unspecified; O99.52 Diseases of the respiratory system complicating childbirth; Z20.822 Contact with and (suspected) exposure to COVID-19; J45.909 Unspecified asthma, uncomplicated; Z3A.38 38 weeks gestation of pregnancy; Z82.49 Family history of ischemic heart disease and other diseases of the circulatory system; Z80.9 Family history of malignant neoplasm, unspecified
CPT/HCPCS: 36415; 59025; 82962; 85014; 85018; 85027; 86592; 86850; 86900; 86901; 86920; 99211; G0378; A6250; G0463; J0290; J2405; J2590; J3010; J7120; P9016; U0003

== ENCOUNTER 2021-11-26 23:39 | Outpatient (CLI) | payer MEDICAID, OTHER ==
[2021-11-27 00:16] VITALS: BP 128/76
--- NOTE | 2021-11-27 02:18 | Ultrasound Report ---
ULTRASOUND OBSTETRIC LIMITED INDICATION / CLINICAL INFORMATION: r/o abruption, placental locataion, LEANDER. Clinical Gestational Age (GA) in weeks, days: 24, 6 TECHNIQUE: Transabdominal. COMPARISON: None available. FINDINGS: HEART RATE (beats per minute): 163 AMNIOTIC FLUID INDEX (cm) = 12.2 (normal = 7-24 cm) PRESENTATION: Cephalic. ADDITIONAL FINDINGS: There is a grade 0 posterior low-lying placenta. No placental abruption. IMPRESSION: 1. No evidence of placental abruption Signer Name: Devonte Solis DO Signed: 11/27/2021 2:14 AM Workstation Name: [id number]
== END 2021-11-27 02:53 | disposition home or self-care (01) ==
LOC: TRG 23:39 → APU 23:41 → TRG 11-27 02:53
PROVIDERS: ATTEND Obstetrics & Gynecology
DX: O46.92 Antepartum hemorrhage, unspecified, second trimester (principal); Z3A.24 24 weeks gestation of pregnancy
CPT/HCPCS: 59025; 76815

== ENCOUNTER 2022-02-09 19:28 | Outpatient (CLI) | payer MEDICAID ==
[2022-02-09] MEDS ORDERED: LACTATED RINGERS 500 ML IV ONE (20:36)
[2022-02-09 20:40] VITALS: BP 104/74
--- NOTE | 2022-02-09 22:08 | Ultrasound Report ---
Limited OB Ultrasound Biophysical profile ultrasound HISTORY: DECREASED MOVEMENT. TECHNIQUE: Grayscale and color imaging performed. COMPARISON: 11/27/2021 FINDINGS: Single viable intrauterine gestation with cephalic presentation and LEANDER of 16 cm. hea rt rate was 147 bpm. On biophysical profile, the fetus received a score of 2 out of 2 for breathing, movement, posture/ton e, and LEANDER. Total score was 8 out of 8. IMPRESSION: 1. Single viable intrauterine gestation as above. 2. Normal BPP. Signer Name: Tanner Montalvo MD Signed: 02/09/2022 10:04 PM Workstation Name: [id number]
== END 2022-02-09 23:29 | disposition home or self-care (01) ==
LOC: TRG 19:28 → APU 19:30 → TRG 23:29
PROVIDERS: ATTEND Obstetrics & Gynecology
DX: Z34.93 Encounter for supervision of normal pregnancy, unspecified, third trimester (principal); Z3A.34 34 weeks gestation of pregnancy
CPT/HCPCS: 59025; 76815; 76819

== ENCOUNTER 2022-02-13 19:16 | Outpatient (CLI) | payer MEDICAID ==
[2022-02-13 19:58] VITALS: BP 108/74
[2022-02-13] MEDS ORDERED: ACETAMINOPHEN 500 MG TAB PO ONE (20:08)
[2022-02-13] MEDS ORDERED: LACTATED RINGERS 1,000 ML IV ONE (20:08)
[2022-02-13] MEDS ORDERED: TERBUTALINE 1 MG/1 ML INJ SUB-Q SCH (21:00)
== END 2022-02-13 22:10 | disposition home or self-care (01) ==
LOC: TRG 19:16 → APU 19:23 → TRG 22:10
PROVIDERS: ATTEND Obstetrics & Gynecology
DX: O62.9 Abnormality of forces of labor, unspecified (principal); O26.893 Other specified pregnancy related conditions, third trimester; R10.9 Unspecified abdominal pain; Z3A.34 34 weeks gestation of pregnancy
CPT/HCPCS: 59025; 96360; 96372; J3105; J7120